=== PATIENT | female | born 1965 | race Caucasian/White ===

== ENCOUNTER 2021-10-25 15:27 | Emergency (ER) | payer MEDICAID, OTHER ==
[~2021-10-25] VITALS: Ht 149.9 cm; Wt 59.0 kg
[2021-10-25] MEDS ORDERED: SODIUM CHLORIDE 0.9% 1,000 ML IV ONE ×2 (16:30)
[2021-10-25] MEDS ORDERED: INSULIN REGULAR (HUMULIN R) 300UNITS/3ML VIAL SUBCUT ONE (16:30)
[2021-10-25 16:35] LABS: BASOPHILS % 0.7 % (0.0-2.0); EOSINOPHILS % 1.5 % (0.0-5.0); HEMATOCRIT. 42.6 % (36.0-48.0); HEMOGLOBIN. 14.8 g/dL (12.0-16.0); LYMPHOCYTES % 41.6 % (20.0-50.0); MEAN CORPUSCULAR VOLUME 86.1 fL (81.0-99.0); MEAN PLATELET VOLUME 9.8 fl (7.4-10.4); MONOCYTES % 6.1 % (2.0-8.0); NEUTROPHILS % 50.1 % (40.0-76.0); PLATELET 184 x1000/uL (130-400); RED BLOOD CELL COUNT 4.95 mill/uL (4.2-5.4); RED CELL DISTRIBUTION WIDTH 12.7 % (11.6-14.6)
[2021-10-25 16:41] LABS: CLARITY URINE CLEAR (CLEAR); COLOR URINE YELLOW (YELLOW); KETONES URINE NEGATIVE (NEGATIVE); LEUKOCYTE ESTERASE URINE NEGATIVE (NEGATIVE); NITRITE URINE NEGATIVE (NEGATIVE); OCCULT BLOOD URINE NEGATIVE (NEGATIVE); PH URINE 6.5 (4.5-8.0); PROTEIN URINE NEGATIVE (NEGATIVE); SPECIFIC GRAVITY URINE 1.028 (1.005-1.030); UROBILINOGEN URINE 0.2 E.U./dL (0.2-1.0)
[2021-10-25 16:42] LABS: CHLORIDE 99 mEq/L (98-107)
[2021-10-25 16:52] LABS: BETA HYDROXYBUTYRATE 0.1 mMol/L (0.0-0.3)
[2021-10-25] MEDS ORDERED: ASPIRIN 325MG EC TABLET PO ONE (20:30)
[2021-10-26 00:56] VITALS: BP 116/68
== END 2021-10-26 01:19 | disposition short-term general hospital (02) ==
LOC: ER 15:27
DX: R27.0 Ataxia, unspecified (principal); E11.65 Type 2 diabetes mellitus with hyperglycemia; M79.7 Fibromyalgia; E78.00 Pure hypercholesterolemia, unspecified; I10 Essential (primary) hypertension
CPT/HCPCS: 36415; 70450; 71045; 72100; 73521; 73560; 80053; 81003; 82010; 82962; 84484; 85025; 87077; 87086; 87186; 93005; 96360; 96361; 96372; 99285; J1815; J7030